=== PATIENT | male | born 1955 | race Hispanic/Latino ===

== ENCOUNTER 2021-10-03 16:58 | Outpatient (CLI) | payer BC ==
[2021-10-04 13:31] LABS: SARS-CoV-2 PCR by NAA Not Detected (NotDetected)
== END 2021-10-03 16:59 | disposition home or self-care (01) ==
LOC: CSHLAB 16:58
PROVIDERS: ATTEND Surgery
DX: Z01.818 Encounter for other preprocedural examination (principal); Z20.822 Contact with and (suspected) exposure to COVID-19
CPT/HCPCS: 93005; 93010; U0003; U0005

== ENCOUNTER 2022-09-11 17:19 | Outpatient (CLI) | payer MEDICARE ==
[2022-09-11 18:02] LABS: Hemoglobin 14.9 g/dL (13.5-17.5); Mean Corpuscular HGB CONC 35.3 g/dL (32.0-36.0); Mean Corpuscular Volume 90.8 fl (81.2-95.1); Mean Platelet Volume 10.7 fl (7.4-10.4); Platelet Count 217 10x3/uL (150-450); RBC Distribution Width 12.1 % (11.5-14.5); Red Blood Cell (RBC) Count 4.65 10x6/uL (4.32-5.72); White Blood Cell (WBC) Count 7.9 10x3/uL (3.5-10.5)
[2022-09-11 18:10] LABS: Anion Gap 16 mmol/L (10-20); BUN (Urea Nitrogen) 21 mg/dL (8.4-25.7); Calc. Creatinine Clearance 0 mL/min (70-130); Carbon Dioxide 24 mmol/L (23-31); Chloride 103 mmol/L (98-107); Potassium 3.8 mmol/L (3.5-5.1); Sodium 139 mmol/L (136-145)
[2022-09-11 18:11] LABS: Calcium 9.5 mg/dL (7.8-10.44); Estimated GFR 91; Glucose 95 mg/dL (80-115)
== END 2022-09-11 17:20 | disposition home or self-care (01) ==
LOC: CSHLAB 17:19
PROVIDERS: ATTEND Surgery
DX: Z01.818 Encounter for other preprocedural examination (principal); K43.2 Incisional hernia without obstruction or gangrene
CPT/HCPCS: 80048; 85027; 93005; 93010

== ENCOUNTER 2022-09-14 08:12 | Day surgery (SDC) | payer BC, MEDICARE ==
[2022-09-12 14:53] VITALS: BMI 30.7
[2022-09-14] MEDS ORDERED: Bupivacaine PF 0.5% 30 ML VIAL ONE (10:39)
[2022-09-14] MEDS ORDERED: EPINEPHrine 1 MG/ML AMP ONE (10:39)
[2022-09-14] MEDS ORDERED: CEFAZOLIN 2 GM VIAL ONE (11:42)
[2022-09-14] MEDS ORDERED: PROPOFOL 40 ML ONE (11:43)
[2022-09-14] MEDS ORDERED: Ondansetron PF 4 MG/2 ML Vial ONE (11:44)
[2022-09-14] MEDS ORDERED: Dexamethasone 4 mg/ml Vial ONE (11:44)
[2022-09-14] MEDS ORDERED: PHENYLEPHRINE-NS 100 MCG/ML 10 ML SYRINGE ONE (11:44)
[2022-09-14] MEDS ORDERED: Lidocaine 2% PF 5 ML VIAL ONE (11:44)
[2022-09-14] MEDS ORDERED: Rocuronium Bromide 10 MG/ML (10ML VIAL) ONE (11:44)
[2022-09-14] MEDS ORDERED: Fentanyl 100 MCG/2 ML VIAL ONE ×2 (12:10→13:18)
[2022-09-14] MEDS ORDERED: Glycopyrrolate 0.2 MG/ML 5 ML SYRINGE ONE (12:23)
[2022-09-14] MEDS ORDERED: SUGAMMADEX SODIUM 200 MG/2 ML VIAL ONE (12:44)
[2022-09-14] MEDS ORDERED: Acetaminophen 325 MG TAB PO PRN (13:12)
[2022-09-14] MEDS ORDERED: HYDROcodone/Acetaminophen 5/325 mg Tablet PO PRN (13:12)
[2022-09-14] MEDS ORDERED: HYDROcodone/Acetaminophen 5/325 mg Tablet ONE (13:55)
== END 2022-09-14 14:30 | disposition home or self-care (01) ==
LOC: CSHSDC 08:12
PROVIDERS: ATTEND Surgery
PROC: 0WUF4JZ Supplement Abdominal Wall with Synthetic Substitute, Percutaneous Endoscopic Approach (ICD-10-PCS; principal; 2022-09-14)
DX: K43.2 Incisional hernia without obstruction or gangrene (principal); I10 Essential (primary) hypertension; K21.9 Gastro-esophageal reflux disease without esophagitis; L40.9 Psoriasis, unspecified; F32.A Depression, unspecified; Z79.899 Other long term (current) drug therapy; Z87.891 Personal history of nicotine dependence; Z98.890 Other specified postprocedural states
CPT/HCPCS: C1713; J0171; J1100; J2001; J2405; J2704; J3010; S0020